=== PATIENT | female | born 2000 | race Caucasian/White ===

== ENCOUNTER 2020-01-05 00:47 | Emergency (ER) | payer MEDICAID, SELFPAY ==
[2020-01-05 01:03] VITALS: BP 119/72; PULSE 87; RESP 16; TEMP 36.9; O2SAT 98; BMI 26.9
--- NOTE | 2020-01-05 01:11 | W.ED.NAVMDI ---
HPI - Nausea/Vomiting/Diarrhea General: Chief complaint: Nausea/Vomiting/Diarrhea Stated complaint: n/v/8 weeks preg Time Seen by Provider: 01/05/20 01:02 Source: patient Mode of arrival: ambulatory Limitations: no limitations History of Present Illness: HPI Narrative: Patient is a very pleasant 19-year-old female here at approximately 8 weeks for concerns of nausea and vomiting over the past week. Patient states symptoms initially began a week ago but over the past few days has not been able to hold down anything. She has not tried anything for the nausea and vomiting at home. She states her has been confirmed through the [facility]. She has not had any abdominal pain, diarrhea, vaginal discharge/bleeding, or abdominal/pelvic cramping. No fevers/chills. MD elicited complaint: nausea and vomiting Associated nausea: Yes Location of pain: None Exacerbating factors: eating Associated symtoms: Reports nausea; Denies change in vision, chest pain, dysuria, headache(s), palpitations or syncope Review of Systems Const: Denies: fever or chills Eyes: Denies: change in vision or blurry vision ENMT: Denies: throat pain or painful swallowing Card: Denies: chest pain, palpitations, irregular heart rhythm, lightheadedness, syncope or pre-syncope GI: Reports: nausea and vomiting; Denies: abdominal pain, vomiting blood, coffee grounds in vomit, difficulty swallowing, heartburn/indigestion, diarrhea, cramping, change in bowel habits, painful bowel movements, change in stool character, blood in stool, white/light colored stool or fatty stool : Denies: flank pain, difficulty urinating, painful urination, blood in urine, vaginal odor, vaginal bleeding, vaginal discharge or pelvic pain Musc: Denies: back pain Skin/Breast: Denies: rash Neuro: Denies: headache [facility] ED Female Reproductive History: Date of last menstrual period: 11/11/19 Physical Exam Const: COMMON NORMALS: no apparent distress, average body habitus, oriented x3, no limitations, healthy appearing, alert and well nourished Resp: COMMON NORMALS: normal respiratory effort and clear to auscultation bilaterally AUSCULTATION: clear to auscultation bilaterally Cardio: COMMON NORMALS: regular rate and regular rhythm RATE: regular rate RHYTHM: regular rhythm Neuro: COMMON NORMALS: oriented x3 SENSORIUM/ORIENTATION: Yes alert Skin: COMMON NORMALS: no rashes or lesions noted and skin turgor normal GENERAL SKIN EXAM: no rashes or lesions noted and turgor normal Course ED course: pt reports feeling improved after IV fluids, benadryl, and pepcid; we will try PO challenge with Sprite/crackers Reevaluation(s): Reevaluation #1: Patient was able to hold down Sprite and crackers. She is sleeping comfortably in no acute distress. She was given a liter of fluids while here. Vital Signs: Vital signs: Vital Signs Temperature 98.5 F 01/05/20 01:03 Pulse Rate 94 01/05/20 02:42 Respiratory Rate 16 01/05/20 02:42 Blood Pressure 103/62 01/05/20 02:42 Pulse Oximetry 98 01/05/20 02:42 Discharge Plan Discharge Patient Disposition: Home, Self-Care Clinical Impression: Nausea and vomiting during Condition: Stable Prescriptions: No Action 400 mcg Tablet,Chewable 400 mcg PO DAILY RF: 0 Discharge Orders: Discharge Order (Routine); Ordered 01/05/20 Ordered By: Kait Catalan Discharge Diet: Advance as tolerated Discharge Activity: Resume usual activity Patient Instructions: Acute Nausea and Vomiting (ED) Activity Restrictions/Additional Instructions: 1) try eating 6 smaller meals throughout the day instead of from 3 larger meals 2) refrain from eating spicy, salty, or greasy foods 3) mookie candies or real mookie may help alleviate your nausea/vomiting 4) OTC medications such as Pepcid, Unisom, Diphenhydramine, and B6 can help as well If none of these help please follow-up with your OB so they can further manage this. Discharge Date/Time: 01/05/20 02:43 Coding Level of Care Code ED Beauty Specialist for [facility] Fwd Exam Expanded Problem Focused
[2020-01-05] MEDS: famotidine 20 mg/2 mL INJ IVP (01:19)
[2020-01-05] MEDS: diphenhydrAMINE 50 mg/mL SDV 1mL 25 MG IVP (01:20)
[2020-01-05 01:24] VITALS: BP 119/72; PULSE 82; RESP 12; O2SAT 99
[2020-01-05] MEDS: sodium chloride 0.9% 1,000 ML 999 ML IV (01:24)
[2020-01-05 02:42] VITALS: BP 103/62; PULSE 94; RESP 16; O2SAT 98
== END 2020-01-05 02:43 | disposition home or self-care (01) ==
PROVIDERS: Emergency Provider Physician Assistant
DX: O21.9 Vomiting of pregnancy, unspecified (principal); Z3A.08 8 weeks gestation of pregnancy
CPT/HCPCS: 12345; 96360; 96361; 96374; 96375; 99282; 99283; J1200; J3490; J7030